=== PATIENT | female | born 1990 | race Caucasian/White ===

== ENCOUNTER 2016-05-25 15:07 | Emergency (ER) | payer OTHER ==
[2016-05-25] MEDS ORDERED: ONDANSETRON HCL/PF 2 MG/ML VIAL IV ONE (18:15)
[2016-05-25] MEDS ORDERED: DICYCLOMINE HCL 10 MG/ML AMPUL IM ONE ×2 (18:16→18:25)
[2016-05-25] MEDS ORDERED: NORMAL SALINE 1,000 ML IV ONE (18:16)
--- NOTE | 2016-05-25 18:20 | ERNOTE ---
<Aura Watt - Last Filed: 05/25/16 23:04> Abdominal HPI - Narrative Date of Service: 05/25/16 - General Chief Complaint: Abdominal Pain Time Seen by Provider: 05/25/16 17:58 Source: patient Exam Limitations: no limitations - Immun/Allergies/Home Medications Immunizatons: IMMUNIZATION HX Immunizations Up to Date Yes History of Influenza Vaccine Yes Allergies/Adverse Reactions: Allergies Penicillins Allergy (Mild, Verified 05/25/16 15:18) Hives Home Medications: HOME MEDICATIONS Acetaminophen [Tylenol] 650 mg PO Q4H PRN 12/26/15 [Last Taken 12/26/15 14:00] Cipro BID 05/25/16 [Last Taken Unknown] Dicyclomine HCl [Bentyl] 10 mg PO TID PRN #30 capsule 05/25/16 [Last Taken Unknown] Promethazine HCl [Phenergan] 25 mg PO QID PRN #30 tab 05/25/16 [Last Taken Unknown] metFORMIN HCL [Glucophage Xr] 750 mg PO BID 05/25/16 [Last Taken Unknown] - History of Present Illness Narrative: Pt. comes in with c/o NVD and abd pain for a week. Pt. was seen in the dafter ED four days ago and dx with partial SOB, ruptured ovarian cyst, and gallbladder disease. Pt. was discharged home without any change in symptoms and states that the NVD and pain have worsened since. Pt. states that he has not been able to eat or drink for six days. Review of Systems - Review of Systems Constitutional: Present: weakness, fatigue, malaise. Absent: recent illness, fever, chills EYE: Present: no symptoms reported ENT: Present: no symptoms reported Respiratory: Present: no symptoms reported. Absent: shortness of breath, cough , wheezing Cardiology: Present: no symptoms reported. Absent: chest pain, palpitations, edema Gastrointestinal/Abdominal: Present: nausea, vomiting, diarrhea, abdominal pain - periumbilical LUQ Genitourinary: Present: no symptoms reported. Absent: frequency, pain, dysuria , decreased urinary output Musculoskeletal: Present: no symptoms reported. Absent: back pain, joint pain Skin: Present: no symptoms reported Neurological: Present: no symptoms reported. Absent: headache, dizziness/light- headedness, numbness, tingling All Other Systems: All systems neg except as marked - Patient's Past Medical History Patient History - Medical: Diabetes Type 2, Migraines Patient History - Cancer: No Hx of Cancer Patient History - Surgical Procedures: Appendectomy - Social History Living Situations: home Alcohol Use: occasionally Physical Exam - Physical Exam General Appearance: Present: wd/wn, alert, no apparent distress Eye Exam: Normal inspection: bilateral, PERRL: bilateral, EOMI: bilateral Ears, Nose, Throat: Present: normal ENT inspection, hearing grossly normal, normal pharynx Neck: Present: normal inspection, nontender. Absent: lymphadenopathy (R), lymphadenopathy (L) Respiratory: Present: no respiratory distress, normal breath sounds, no accessory muscle use, chest nontender, lungs clear Cardiovascular/Chest: Present: regular rate, rhythm, no murmur, normal peripheral pulses Gastrointestinal/Abdominal: Present: nondistended, soft, no organomegaly, tenderness - LUQ and periumbilical, abnormal bowel sounds - hypo Back Exam: Present: normal inspection, normal range of motion, CVA tenderness (R ), CVA tenderness (L) Extremity Exam: Present: normal inspection, non-tender, no edema, normal range of motion Neurological Exam: Present: alert, oriented, normal mood/affect, no motor/ sensory deficits, 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 Absent: skin rash ED Progress - Date and Time Seen: Date and Time: 05/25/16 22:03 Reviewed labs from [place] and pt. with significant fat intolerance in food. Will rehydrate pt. and have her follow up with her PCP for further referral to GI doctor and will have her start low fat and gluten free diet in the mean time for hopeful symptom alleviation. 05/25/16 23:04 Pt. unable to tolerate any foods or fluids. - Results and Orders Patient's Lab Results:: I have reviewed the patient's lab results. - Vital Signs Patient's Vital Signs:: I have reviewed the patient's vital signs. Vital Signs: Vital Signs 05/25/16 05/25/16 15:12 17:47 Temperature 36.4 C L Pulse Rate 103 H 99 Respiratory 16 14 Rate Blood Pressure 115/81 O2 Sat by Pulse 99 100 Oximetry - X-Ray X-Ray #1 X-Ray: abdomen Interpretation: Reviewed by me X-ray Comments: No free air, no obstruction. - Progress/Reassessment Chief Complaint: Abdominal Pain Progress:: Unchanged - Transfer of Care Physician Sign Out: Aura Watt Brief History: Awaiting for pt to tolerate foods. Receiving Physician: Baldev Ortega Expected Disposition: Discharge Departure - Departure Clinical Impression: Constipation by delayed colonic transit Disposition: Home self-care Condition: Good Instructions: Constipation, Adult, [id number] Additional Instructions: Take another dose of milk of Magnesia in 6-8 hours if no results. Buy Magnesium Citrate and drink half of a bottle followed by a glass of water if no results by tomorrow night. Follow up with your regular doctor if not improving Referrals: Yusuf France DO [Primary Care Provider] - Prescriptions: Dicyclomine HCl [Bentyl] 10 mg PO TID PRN #30 capsule PRN Reason: Pain Promethazine HCl [Phenergan] 25 mg PO QID PRN #30 tab PRN Reason: nausea/vomiting <Baldev Ortega - Last Filed: 05/26/16 02:46> Abdominal HPI - Immun/Allergies/Home Medications Immunizatons: IMMUNIZATION HX Immunizations Up to Date Yes History of Influenza Vaccine Yes ED Progress - Results and Orders Patient's Lab Results:: I have reviewed the patient's lab results. Results and Orders: Laboratory Tests 05/25/16 05/25/16 05/25/16 18:15 18:58 18:58 WBC 6.9 Hgb 14.1 Hct 42.2 Plt Count 256 Sodium 139 Potassium 4.0 Chloride 102 BUN 11 Creatinine 0.78 Calcium 9.8 Total Protein 8.4 H Amylase 22 L Lipase 64 L Urine Color Urine Appearance Urine pH Ur Specific [place] Urine Protein Urine Glucose (UA) Urine Ketones Urine Blood Urine Nitrate Urine Bilirubin Ur Leukocyte Esterase Urine Culture Comments Urine HCG, Qual Negative 05/25/16 19:41 WBC Hgb Hct Plt Count Sodium Potassium Chloride BUN Creatinine Calcium Total Protein Amylase Lipase Urine Color Yellow Urine Appearance Slightly cloudy Urine pH 6.0 Ur Specific [place] >=1.030 Urine Protein Negative Urine Glucose (UA) Negative Urine Ketones 5 Urine Blood 50 H Urine Nitrate Negative Urine Bilirubin Negative Ur Leukocyte Esterase Negative Urine Culture Comments No culture indicated Urine HCG, Qual - Vital Signs Patient's Vital Signs:: I have reviewed the patient's vital signs. Vital Signs: Vital Signs 05/25/16 05/25/16 05/25/16 17:47 20:51 23:11 Pulse Rate 99 79 86 Respiratory 14 14 18 Rate Blood Pressure 122/64 135/71 O2 Sat by Pulse 100 97 100 Oximetry 05/25/16 23:57 Pulse Rate 88 Respiratory 18 Rate Blood Pressure 135/72 O2 Sat by Pulse 100 Oximetry - Progress/Reassessment Progress Note-Subjective: 05/26/16 00:14 Pt states that nausea is better but pain remains. PE: A&O INAD lying on the ER cot. ABD: sightly firm in the RUQ and epigastrium. No guarding or rebound tenderness. BS hypoactive throughout. XR abd; retained stool and contrast (from 05/20/16 CT) in the acending and transverse colon. 05/26/16 02:34 Discussed lab results with the patient and her mother. Discussed constipation and the findings at [facility] of a diffuse illeus that suggest the same diagnosis. Showed the patient and her mother the x rays with 4 days old contrast and stool concentrated in the area of her discomfort. Discussed MOM and magnesium citrate. Discussed the constipating effects of narcotic medications. Discussed the use of dicyclomine and that it can also be constipating and should only be used if she is having severe crampy pain. All questions answered to the best of my ability
[2016-05-25] MEDS ORDERED: ONDANSETRON HCL/PF 2 MG/ML VIAL ONE (18:25)
[2016-05-25 19:06] LABS: Hematocrit 42.2 % (37.0-47.0); Hemoglobin 14.1 gm/dL (12.5-16.0); Mean Cell Volume 88.8 fl (78-100); Mean Corpuscular Hemoglobin 29.7 pg (27-31); Mean Corpuscular Hgb Conc 33.4 g/dl (32-36); Mean Platelet Volume 8.9 fl (6.0-9.5); Neutrophil # 3.6 K/mm3 (1.3-6.0); Neutrophil % 51.6 % (42-75.0); Platelet Count 256 K/mm3 (150-450); Red Blood Count 4.75 M/mm3 (4.2-5.4); Red Cell Distribution Width 12.4 % (11.5-14.0); White Blood Count 6.9 K/mm3 (4.0-10.5)
[2016-05-25 19:22] LABS: Albumin * 4.3 gm/dl (3.4-5.0); Anion Gap 15.4 mmol/L (6.8-13.8); BUN/Creatinine Ratio 14.1 (9.0-21.6); Bilirubin, Total 0.5 mg/dL (0.0-1.1); Ca. Corrected For Albumin 9.2 mg/dL (8.4-10.2); Calcium * 9.8 mg/dL (7.9-10.9); Carbon Dioxide 25.6 mmol/L (24-32.6); Total Protein 8.4 gm/dL (6.2-8.2)
[2016-05-25 19:56] LABS: Urine Bilirubin Negative (NEGATIVE); Urine Blood 50 /ul (NEGATIVE); Urine Ketone 5 mg/dL (NEGATIVE); Urine Nitrite Negative (NEGATIVE); Urine Protein Negative (NEGATIVE); Urine Specific Gravity >=1.030 SP.GR. (1.005-1.010); Urine Urobilinogen Normal (NORMAL)
[2016-05-25 20:05] LABS: Urine Appearance Slightly Cloudy; Urine Color Yellow; Urine RBC 0-5 /hpf (0-5); Urine WBC None Seen /hpf (0-5)
[2016-05-25 20:06] LABS: Urine Bacteria 1+
[2016-05-25] MEDS ORDERED: PROMETHAZINE HCL 25 MG in DEXTROSE 5 % IN WATER 50 ML IV ONE ×2 (22:57)
[2016-05-25] MEDS ORDERED: KETOROLAC TROMETHAMINE 30 MG/ML VIAL IV ONE (23:59)
[2016-05-26] MEDS ORDERED: KETOROLAC TROMETHAMINE 30 MG/ML VIAL ONE (00:02)
[2016-05-26] MEDS ORDERED: MAGNESIUM HYDROXIDE 30 ML UDC PO ONE (02:35)
[2016-05-26] MEDS ORDERED: MAGNESIUM HYDROXIDE 30 ML UDC ONE (02:36)
[2016-05-26 02:39] VITALS: BP 168/95
== END 2016-05-26 02:54 | disposition home or self-care (01) ==
LOC: ER 15:07
DX: K59.01 Slow transit constipation (principal); E11.9 Type 2 diabetes mellitus without complications

== ENCOUNTER 2018-12-07 15:19 | Inpatient (IN) ==
[2018-12-07] MEDS ORDERED: BETAMETHASONE ACETATE,SOD PHOS 6 MG/ML VIAL IM ONE (15:36)
[2018-12-07] MEDS ORDERED: DEXTROSE 5%-LACTATED RINGERS 1,000 ML IV PRN (15:36)
[2018-12-07] MEDS ORDERED: diphenhydrAMINE HCL 50 MG/ML VIAL IV ONE (15:36)
[2018-12-07] MEDS ORDERED: ONDANSETRON HCL/PF 2 MG/ML VIAL IV PRN ×2 (15:36→23:43)
[2018-12-07 15:51] LABS: Hematocrit 33.8 % (37.0-47.0); Hemoglobin 11.2 gm/dL (12.5-16.0); Mean Cell Volume 86.9 fl (78-100); Mean Corpuscular Hemoglobin 28.8 pg (27-31); Mean Corpuscular Hgb Conc 33.1 g/dl (32-36); Mean Platelet Volume 8.6 fl (8-12.5); Neutrophil % 67.4 % (42-75.0); Platelet Count 187 K/mm3 (150-450); Red Blood Count 3.89 M/mm3 (4.2-5.4); Red Cell Distribution Width 13.7 % (11.5-14.0); White Blood Count 10.3 K/mm3 (4.0-10.5)
[2018-12-07] MEDS: METOCLOPRAMIDE HCL 5 MG/ML VIAL IV PRN ×4 (15:59→16:47)
[2018-12-07 16:02] LABS: Albumin * 2.4 gm/dl (3.4-5.0); Anion Gap 15.3 mmol/L (6.8-13.8); BUN/Creatinine Ratio 11.3 (9.0-21.6); Bilirubin, Total 0.4 mg/dL (0.0-1.1); Ca. Corrected For Albumin 9.8 mg/dL (8.4-10.2); Calcium * 8.8 mg/dL (7.9-10.9); Carbon Dioxide 21.3 mmol/L (24-32.6); Potassium 3.6 mmol/L (3.4-4.6); Total Protein 6.6 gm/dL (6.2-8.2)
[2018-12-07 16:09] LABS: Random Urine Total Protein 54.5 mg/dL (0-12)
[2018-12-07 16:30] LABS: Cocaine Ur Negative (NEGATIVE); Urine Barbiturate Negative (NEGATIVE); Urine Benzodiazepines Negative (NEGATIVE); Urine Opiates Negative (NEGATIVE); Urine PCP Negative (NEGATIVE); Urine THC Negative (NEGATIVE)
[2018-12-07] MEDS ORDERED: MAGNESIUM SULFATE IN WATER 1,000 ML IV SCH (17:30)
[2018-12-07] MEDS: MAGNESIUM SULFATE IN WATER 50 ML, MAGNESIUM SULFATE IN WATER 50 ML IV ONE ×4 (18:00→18:25)
[2018-12-07] MEDS ORDERED: OXYTOCIN/DEXTROSE 5%-WATER 30 UNITS/500 ML BAG IV ONE (18:12)
[2018-12-07] MEDS ORDERED: MISOPROSTOL 100 MCG TABLET VG ONE (18:12)
[2018-12-07] MEDS ORDERED: oxyCODONE HCL/ACETAMINOPHEN 1 TAB TABLET PO ONE (20:00)
[2018-12-07] MEDS ORDERED: SUMAtriptan SUCCINATE 50 MG TABLET PO ONE (21:03)
[2018-12-07] MEDS ORDERED: NALOXONE HCL 1 MG/1 ML SYRG IV PRN (23:43)
[2018-12-07] MEDS ORDERED: BUPIVACAINE HCL/0.9 % NACL/PF 250 ML EP PRN (23:43)
[2018-12-07] MEDS ORDERED: BUPIVACAINE HCL/PF 30 ML VIAL EP SCH (23:45)
[2018-12-07] MEDS ORDERED: RINGER'S SOLUTION,LACTATED 1,000 ML IV ONE (23:48)
--- NOTE | 2018-12-08 00:25 | ANES ---
Anesthesia Pre Procedure Eval Vitals/Labs: Last Vital Signs Temp 36.5 C 12/07/18 15:50 Pulse 98 12/07/18 15:50 Resp 18 12/07/18 15:50 BP 141/79 H 12/07/18 15:50 Pulse Ox 98 12/07/18 15:50 HOME MEDICATIONS breast pump See Dose Instructions .ROUTE .MEDSUPPLY #1 ea 11/21/18 [Last Taken Unknown] Vits96/Iron Fum/Folic [ S] 1 tab PO DAILY 12/07/18 [Last Taken Unknown] Allergies/Adverse Reactions: Allergies Allergy/AdvReac Type Severity Reaction Status Date / Time Penicillins Allergy Mild Hives Verified 12/07/18 15:17 - Planned Procedure Planned Procedure: ELEVATED BLOOD PRESSURE W/MASSIVE HEADACHE Medication List Reviewed:: Yes Allergies Verified: Yes Medical History (Updated 07/18/18 @ 14:50 by MEKA Nair) Injury of foot, left (Acute) Onset Date: ~07/17/18 Ankle pain, left (Acute) Onset Date: ~07/17/18 Foot pain, left (Acute) Onset Date: ~07/17/18 Hypothyroid (Chronic) History of insulin resistance (Chronic) Frequent headaches (Acute) PCOS (polycystic ovarian syndrome) (Chronic) BMI 39.0-39.9,adult Onset Date: 01/19/17 Body piercing Dysmenorrhea Onset Date: 06/03/15 Frequent headaches Insulin resistance Onset Date: 01/09/16 Irregular menses Menorrhagia with regular cycle Onset Date: 06/03/15 Oligomenorrhea Onset Date: 01/09/16 PCOS (polycystic ovarian syndrome) Onset Date: 01/09/16 Tattoos Bacterial vaginitis (Resolved) Body mass index (BMI) 40.0-44.9, adult (Resolved) Infertility associated with anovulation (Resolved) responded in past to clomid Ruptured ovarian cyst Onset Date: ~05/2016 Secondary oligomenorrhea (Resolved) [place] teeth extracted Surgical History (Updated 12/01/17 @ 15:51 by Keily Rincon RN) History of appendectomy Onset Date: ~1998 History of cholecystectomy Onset Date: ~2016 @ [facility] Family History (Updated 12/01/17 @ 15:52 by Keily Rincon RN) Father Alive and well Mother Alive and well - Anesthesia Assessment and Plan ASA Class: PS, II Anesthesia Type Plan: Epidural
--- NOTE | 2018-12-08 01:00 | ANES ---
Anesthesia Procedure Note Procedure Note: ANESTHESIA PROCEDURE NOTE Date of Procedure: 12/08/2018. Time of procedure: 24. Performed by: Ehsan Stuart CRNA Jig Grinder: None. Preprocedure diagnosis: Active labor. Post procedure diagnosis: Same. Procedure: Insertion of labor epidural. Indications: The patient is a 28-year-old female in active labor requesting labor epidural for pain management. Findings: See below. Details of the procedure: The patient was placed in a sitting position. DuraPrep as well as Betadine swabs X3 was applied to the patient's back. Patient was then draped in a sterile fashion. Lidocaine 1% was infiltrated to the skin and subcutaneous tissues at the level of the L3-4 interspace. The epidural space was identified using a 18-gauge Tuohy needle with [id number] technique. Epidural catheter was inserted to a depth of 13 centimeters at skin. Negative test dose was elicited using 3 mL of 1.5% preservative-free lidocaine plus epinephrine 1 200,000. The epidural catheter was then taped and secured in place. A loading dose of 8 mL of 0.25% preservative-free bupivacaine was administered to the epidural catheter after negative aspiration for blood and CSF. EBL: Minimal. Fluids: N/A. Specimen: N/A. Post procedure condition: The patient tolerated the procedure well. No complications were noted. Thank you for this consultation. Ehsan Stuart CRNA
--- NOTE | 2018-12-08 01:01 | ANES ---
Post Anesthesia Assessment - Vital Signs Vitals: Last Vital Signs Temp 36.3 C 12/08/18 00:55 Pulse 113 H 12/08/18 00:55 Resp 22 H 12/08/18 00:55 BP 134/63 12/08/18 00:55 Pulse Ox 98 12/08/18 00:55 Airway Patency: Normal - Mental Status Level Of Consciousness: Awake - N/V Assessment Nausea/Vomiting Presence: None Dehydration:: No
[2018-12-08] MEDS ORDERED: SUMAtriptan SUCCINATE 50 MG TABLET PO ONE (01:09)
--- NOTE | 2018-12-08 01:17 | HP ---
Chief Complaint - Chief Complaint Date of Service: 12/08/18 Time of Service: 00:38 Chief Complaint: Intractable headache History of Present Illness: 28 yo at 37 weeks presents to L&D with complaint of intractable headache for 3 days and elevated blood pressures. She also complains of nausea and swelling. Patient has a history of headaches but they usually resolve with tylenol. This one is the most painful and longest lasting one she has ever had. She failed to get any relief with the Benadryl/Reglan IV SHAY protocol or percocet. Patient received one dose of betamethasone in office yesterday afternoon. This complicated by anemia, hypothyroid, obesity, and insulin resistance. Rh positive Rubella nonimmune GBS negative Medical History (Updated 07/18/18 @ 14:50 by MEKA Nair) Injury of foot, left (Acute) Onset Date: ~07/17/18 Ankle pain, left (Acute) Onset Date: ~07/17/18 Foot pain, left (Acute) Onset Date: ~07/17/18 Hypothyroid (Chronic) History of insulin resistance (Chronic) Frequent headaches (Acute) PCOS (polycystic ovarian syndrome) (Chronic) BMI 39.0-39.9,adult Onset Date: 01/19/17 Body piercing Dysmenorrhea Onset Date: 06/03/15 Frequent headaches Insulin resistance Onset Date: 01/09/16 Irregular menses Menorrhagia with regular cycle Onset Date: 06/03/15 Oligomenorrhea Onset Date: 01/09/16 PCOS (polycystic ovarian syndrome) Onset Date: 01/09/16 Tattoos Bacterial vaginitis (Resolved) Body mass index (BMI) 40.0-44.9, adult (Resolved) Infertility associated with anovulation (Resolved) responded in past to clomid Ruptured ovarian cyst Onset Date: ~05/2016 Secondary oligomenorrhea (Resolved) [place] teeth extracted Surgical History: Surgical History (Updated 12/01/17 @ 15:51 by Keily Rincon RN) History of appendectomy Onset Date: ~1998 History of cholecystectomy Onset Date: ~2017 @ [facility] Family History: Family History (Updated 12/01/17 @ 15:52 by Keily Rincon RN) Father Alive and well Mother Alive and well Social History: (Last Reviewed 12/08/18 @ 00:45 by Yusuf France DO) Social History: adopted: No chcf: No Marital status: household members: spouse, children number of children: 1 current occupational status: employed current occupation: Daycare Worker Highest education level completed: high school graduate Service: No Tobacco: Smoking Status: Never smoker Alcohol: alcohol intake: former alcohol intake frequency: holiday/special occasion details: none since Substance Use: substance use type: does not use Dietary Habits: caffeine: Yes caffeine comment: 3/day Type: tea daily servings of milk/calcium: 0-1 Exercise: Physical activity type: none Marge/Advent: special marge needs: No Personal Safety: do you feel safe at home: Yes Review Of Systems (GEN) - Review of Systems Generalized/Overall Review: Present: No Symptoms Reported EENTM: Present: No Symptoms Reported Respiratory: Present: No Symptoms Reported Cardiac: Present: Edema Abdominal: Present: Nausea Genitourinary: Present: No Symptoms Reported Musculoskeletal: Present: No Symptoms Reported Neurological: Present: Headache Skin: Present: No Symptoms Reported Endocrine: Present: No Symptoms Reported Immunizations: IMMUNIZATION HX Immunizations Up to Date Yes History of Influenza Vaccine Yes Allergies/Adverse Reactions: Allergies Allergy/AdvReac Type Severity Reaction Status Date / Time Penicillins Allergy Mild Hives Verified 12/07/18 15:17 Home Medications: HOME MEDICATIONS breast pump See Dose Instructions .ROUTE .MEDSUPPLY #1 ea 11/21/18 [Last Taken Unknown] Vits96/Iron Fum/Folic [ S] 1 tab PO DAILY 12/07/18 [Last Taken Unknown] Exam - Exam Vital Signs: Vital Signs - Last Taken Temp 36.5 C 12/07/18 15:50 Pulse 98 12/07/18 15:50 Resp 18 12/07/18 15:50 BP 141/79 H 12/07/18 15:50 Pulse Ox 98 12/07/18 15:50 Constitutional: Present: Alert, Oriented x3, Cooperative, Mild distress - from SHAY pain and nausea ENT Exam: Present: hearing grossly normal Neck: Present: non-tender, supple. Absent: thyromegaly Breasts: Present: Exam deferred Respiratory: Present: lungs clear, no respiratory distress Cardiovascular/Chest: Present: normal peripheral pulses, tachycardia, edema Abdomen: Present: soft, nontender, no rebound tenderness, other - gravid /Rectal: Present: Other - cervix 1/50/-2 Extremity: Present: no calf tenderness, lower extremity edema Skin Exam: Present: normal color, warm/dry, no cyanosis Neurologic: Present: no motor/sensory deficits, normal mood/affect, oriented x 3, other - DTR 3/4, no clonus Appearance: Present: appropriate appearance, appropriate insight Eye contact: Present: cooperative, good eye contact Thoughts: Present: normal thought pattern Diagnostic Studies: Abnormal Lab Results 12/07/18 12/07/18 12/07/18 Range/Units 15:45 15:45 15:45 RBC 3.89 L (4.2-5.4) M/mm3 Hgb 11.2 L (12.5-16.0) gm/dL Hct 33.8 L (37.0-47.0) % Immature Gran % (Auto) 1.00 H (0.001-0.429) % Immature Gran # (Auto) 0.10 H (0.000-0.0310) K/mm3 Lymphocytes % 17.7 L (20-51) % Monocytes % 9.8 H (0.0-9) % Eosinophils % 3.9 H (0.0-3.0) % Neutrophils # 7.0 H (1.3-6.0) K/mm3 Carbon Dioxide 21.3 L (24-32.6) mmol/L Anion Gap 15.3 H (6.8-13.8) mmol/L Est GFR (Non-Af Amer) 144 H D (60-130) mL/min ALT 15 L (19-67) U/L Albumin 2.4 L (3.4-5.0) gm/dl U Random Total Protein 54.5 H (0-12) mg/dL U [place] Prot/Creat Ratio 308 H (0-199) mg/gm Laboratory Results WBC 10.3 K/mm3 (4.0-10.5) 12/07/18 15:45 RBC 3.89 M/mm3 (4.2-5.4) L 12/07/18 15:45 Hgb 11.2 gm/dL (12.5-16.0) L 12/07/18 15:45 Hct 33.8 % (37.0-47.0) L 12/07/18 15:45 MCV 86.9 fl (78-100) 12/07/18 15:45 MCH 28.8 pg (27-31) 12/07/18 15:45 MCHC 33.1 g/dl (32-36) 12/07/18 15:45 RDW 13.7 % (11.5-14.0) 12/07/18 15:45 Plt Count 187 K/mm3 (150-450) 12/07/18 15:45 MPV 8.6 fl (8-12.5) 12/07/18 15:45 Immature Gran % (Auto) 1.00 % (0.001-0.429) H 12/07/18 15:45 Immature Gran # (Auto) 0.10 K/mm3 (0.000-0.0310) H 12/07/18 15:45 67.4 % (42-75.0) 12/07/18 15:45 17.7 % (20-51) L 12/07/18 15:45 9.8 % (0.0-9) H 12/07/18 15:45 3.9 % (0.0-3.0) H 12/07/18 15:45 0.2 % (0.0-1.0) 12/07/18 15:45 Nucleated RBC % 0.0 k/mm3 (0-1) 12/07/18 15:45 7.0 K/mm3 (1.3-6.0) H 12/07/18 15:45 1.82 k/mm3 (1.5-3.5) 12/07/18 15:45 1.0 k/mm3 (0.0-1.0) 12/07/18 15:45 0.4 k/mm3 (0.0-0.7) 12/07/18 15:45 Absolute Basophils 0.0 k/mm3 (0.0-0.1) 12/07/18 15:45 Sodium 137 mmol/L (132-142) 12/07/18 15:45 137 mmol/L (130-142) 12/07/18 15:45 Potassium 3.6 mmol/L (3.4-4.6) 12/07/18 15:45 Chloride 104 mmol/L (97-106) 12/07/18 15:45 Carbon Dioxide 21.3 mmol/L (24-32.6) L 12/07/18 15:45 15.3 mmol/L (6.8-13.8) H 12/07/18 15:45 BUN 6 mg/dL (3-23) D 12/07/18 15:45 0.53 mg/dL (0.4-1.4) 12/07/18 15:45 Est GFR (Non-Af Amer) 144 mL/min (60-130) H D 12/07/18 15:45 11.3 (9.0-21.6) 12/07/18 15:45 110 mg/dL (70-110) 12/07/18 15:45 Calcium 8.8 mg/dL (7.9-10.9) 12/07/18 15:45 Calcium Adj for Albumin 9.8 mg/dL (8.4-10.2) 12/07/18 15:45 0.4 mg/dL (0.0-1.1) 12/07/18 15:45 AST 17 U/L (0-48) 12/07/18 15:45 ALT 15 U/L (19-67) L 12/07/18 15:45 131 U/L (50-170) 12/07/18 15:45 6.6 gm/dL (6.2-8.2) 12/07/18 15:45 2.4 gm/dl (3.4-5.0) L 12/07/18 15:45 Ur Random Creatinine 176.9 mg/dL (60-200) 12/07/18 15:45 U Random Total Protein 54.5 mg/dL (0-12) H 12/07/18 15:45 U [place] Prot/Creat Ratio 308 mg/gm (0-199) H 12/07/18 15:45 Negative (NEGATIVE) 12/07/18 15:15 Negative (NEGATIVE) 12/07/18 15:15 Ur Phencyclidine Scrn Negative (NEGATIVE) 12/07/18 15:15 Urine Amphetamine Negative (NEGATIVE) 12/07/18 15:15 U Benzodiazepines Scrn Negative (NEGATIVE) 12/07/18 15:15 Negative (NEGATIVE) 12/07/18 15:15 Negative (NEGATIVE) 12/07/18 15:15 NST reactive Assessment/Plan - Assessment/Plan (1) Severe preeclampsia Assessment: Due to elevated blood pressures, intractable headache unlike prior headaches, and elevated Pr/Cr ratio will place on magnesium sulfate IV and induce labor. Epidural PRN. Problem: Acute Qualifiers: Trimester: third trimester Qualified Code(s): O14.13 - Severe pre- eclampsia, third trimester (2) Hypothyroid Problem: Chronic Qualifiers: Hypothyroidism type: unspecified Qualified Code(s): E03.9 - Hypothyroidism, unspecified (3) History of insulin resistance Problem: Chronic
--- NOTE | 2018-12-08 01:21 | PN ---
Subjective - Date and Time Seen Date: 12/08/18 Time: 01:17 Objective - Vitals Vitals: Last Vital Signs Temp 36.3 C 12/08/18 00:55 Pulse 113 H 12/08/18 00:55 Resp 22 H 12/08/18 00:55 BP 134/63 12/08/18 00:55 Pulse Ox 98 12/08/18 00:55 Patient still with headache she is rating 7 out of 10. Relief of contraction pain now with epidural. Vital signs stable. Status post Cytotec x1 dose at 1842 on 12/07/2018. FHT: 140 baseline, reassuring contractions q 1-3 min Cervix: 4-5/70/-2, [id number] color. Impression: Intrauterine at 37 weeks induction of labor for preeclampsia with severe features. Persistent headache with minimal relief. Plan: Continue IV magnesium sulfate. Repeat dose of Imitrex. If headaches still persist after delivery will obtain MRI. - Abnormal Lab Findings Abnormal Lab Findings: Abnormal Lab Results 12/07/18 12/07/18 12/07/18 Range/Units 15:45 15:45 15:45 RBC 3.89 L (4.2-5.4) M/mm3 Hgb 11.2 L (12.5-16.0) gm/dL Hct 33.8 L (37.0-47.0) % Immature Gran % (Auto) 1.00 H (0.001-0.429) % Immature Gran # (Auto) 0.10 H (0.000-0.0310) K/mm3 Lymphocytes % 17.7 L (20-51) % Monocytes % 9.8 H (0.0-9) % Eosinophils % 3.9 H (0.0-3.0) % Neutrophils # 7.0 H (1.3-6.0) K/mm3 Carbon Dioxide 21.3 L (24-32.6) mmol/L Anion Gap 15.3 H (6.8-13.8) mmol/L Est GFR (Non-Af Amer) 144 H D (60-130) mL/min ALT 15 L (19-67) U/L Albumin 2.4 L (3.4-5.0) gm/dl U Random Total Protein 54.5 H (0-12) mg/dL U [place] Prot/Creat Ratio 308 H (0-199) mg/gm [place] Physician Documentation - Urinary Catheter Management Urethral ([place]) Date of Insertion: 12/07/18 Time of Insertion: 19:15 Assessment/Plan - Problems/Diagnosis (1) Severe preeclampsia Problem: Acute Qualifiers: Trimester: third trimester Qualified Code(s): O14.13 - Severe pre- eclampsia, third trimester (2) Hypothyroid Problem: Chronic Qualifiers: Hypothyroidism type: unspecified Qualified Code(s): E03.9 - Hypothyroidism, unspecified (3) History of insulin resistance Problem: Chronic
--- NOTE | 2018-12-08 06:19 | PN ---
Progess Note - Interim Date: 12/08/18 Time: 06:05 Narrative: 12/08/18 06:05 Epidural working well for contractions. Still with headache 7 out of 10. Vital signs stable. Mildly tachycardic with pulse 111 Pitocin at 6 mu/min. Magnesium sulfate at 2 g/h DTRs 0/4, urine output 100 mL/h, FHT: 140 baseline, reassuring contractions q 2-3 min Cervix: 8/90/-2 Impression: Intrauterine at 37 weeks induction of labor for preeclampsia with severe features. Persistent intractable headache-no neurologic deficits Plan: Mag turned off for half hour to allow reflexes to return. Anticipate spontaneous vaginal delivery soon. CT scan after delivery.
[2018-12-08] MEDS ORDERED: MISOPROSTOL 200 MCG TABLET RC ONE (08:00)
[2018-12-08] MEDS ORDERED: OXYTOCIN/DEXTROSE 5%-WATER 30 UNITS/500 ML BAG IV ONE (08:29)
[2018-12-08] MEDS ORDERED: BENZOCAINE/MENTHOL 81 SPRAY CAN TP PRN (08:29)
[2018-12-08] MEDS ORDERED: SENNOSIDES 8.6 MG TABLET PO PRN (08:29)
[2018-12-08] MEDS ORDERED: GLYCERIN/WITCH HAZEL LEAF 40 APPL BOX TP PRN (08:29)
[2018-12-08] MEDS ORDERED: IBUPROFEN 800 MG TABLET PO PRN (08:29)
[2018-12-08] MEDS ORDERED: HYDROCORTISONE 30 APPL TUBE TP PRN (08:29)
[2018-12-08] MEDS ORDERED: BISACODYL 10 MG SUPP.RECT RC PRN (08:29)
[2018-12-08] MEDS ORDERED: ONDANSETRON HCL/PF 2 MG/ML VIAL IV PRN (08:29)
[2018-12-08] MEDS ORDERED: DEXTROSE 5%-LACTATED RINGERS 1,000 ML IV PRN ×2 (08:29→17:38)
[2018-12-08] MEDS ORDERED: HYDROcodone/ACETAMINOPHEN 1 EACH TABLET PO PRN (08:29)
--- NOTE | 2018-12-08 08:33 | OR ---
Operative Report - Dictated Report Narrative: Spontaneous vaginal delivery of viable female at 0751 on 12/08/2018 with Apgars 8 9, weighing 3627 g. Cord clamping delayed approximately 1 minute Placenta delivered complete, intact, with three vessel cord Estimated blood loss: 400 mL due to uterine atony which responded to uterine massage, Cytotec 800 mcg rectally, and 30 milliunits of Pitocin intravenously Anesthesia: Epidural Lacerations: Bilateral periurethral abrasion and a 5 mm first-degree vaginal t ear at the posterior fourchette with no repair necessary. History for MU History for Definition: * The number of deliveries resulting in a live the patient experienced prior to current hospitalization * The previous delivery of live twins or any live multiple gestation is considered one live event. *If primagravida or nulliparous is documented select zero for the number of previous live births. Live Events: Live Events: 1
[2018-12-08] MEDS: RINGER'S SOLUTION,LACTATED 1,000 ML IV PRN ×2 (08:48)
--- NOTE | 2018-12-08 08:53 | PN ---
Progess Note - Interim Date: 12/08/18 Time: 08:51 Narrative: 12/08/18 08:51 SHAY resolved within minutes after delivery. Good urine output. BPs WNL. Still mild tachycardia with no f/c, chest pain, or SOB. Will continue magnesium sulfate for at least 12-24h and monitor patient closely.
[2018-12-08] MEDS: IBUPROFEN 800 MG TABLET PO PRN ×2 (09:33→19:18)
[2018-12-08] MEDS: DOCUSATE SODIUM 100 MG CAPSULE PO SCH ×2 (15:12→20:14)
[2018-12-08] MEDS: MAGNESIUM SULFATE IN WATER 1,000 ML IV SCH (15:12)
[2018-12-08] MEDS: PRENATAL VITS96/IRON FUM/FOLIC 1 TAB TABLET PO SCH (15:12)
[2018-12-09] MEDS: MAGNESIUM SULFATE IN WATER 1,000 ML IV SCH (04:35)
[2018-12-09] MEDS ORDERED: diphenhydrAMINE HCL 50 MG/ML VIAL IV ONE (07:43)
[2018-12-09] MEDS ORDERED: METOCLOPRAMIDE HCL 5 MG/ML VIAL IV ONE ×2 (07:43→08:20)
[2018-12-09] MEDS ORDERED: METOCLOPRAMIDE HCL 5 MG/ML VIAL IV PRN (08:22)
--- NOTE | 2018-12-09 09:15 | PN ---
Subjective - Date and Time Seen Date: 12/09/18 Time: 08:48 Objective - Vitals Vitals: Last Vital Signs Temp 37.0 C 12/09/18 07:00 Pulse 103 H 12/09/18 07:00 Resp 18 12/09/18 07:00 BP 134/61 12/09/18 07:00 Pulse Ox 98 12/09/18 07:00 Patient complained of a headache 8 out of 10 this morning - resolved with Benadryl Reglan protocol (2 doses of Reglan) Lochia wnl abdomen - soft, nontender Uterus -firm, at umbilicus - 1 no calf tenderness DTR-3/4, no clonus Impression: day #1 - s/p spontaneous vaginal delivery. Migraine - resolved with Benadryl/Reglan protocol. Preeclampsia with severe features (intractable headache) - resolved Plan: Continue routine care. Advance diet and activity. Continue monitoring closely for preeclampsia Cauti Physician Documentation - Urinary Catheter Management Urethral (Taveras) Date of Insertion: 12/08/18 Time of Insertion: 08:15 Assessment/Plan - Problems/Diagnosis (1) Severe preeclampsia Problem: Acute Qualifiers: Trimester: third trimester Qualified Code(s): O14.13 - Severe pre- eclampsia, third trimester (2) Hypothyroid Problem: Chronic Qualifiers: Hypothyroidism type: unspecified Qualified Code(s): E03.9 - Hypothyroidism, unspecified (3) History of insulin resistance Problem: Chronic
[2018-12-09] MEDS: PRENATAL VITS96/IRON FUM/FOLIC 1 TAB TABLET PO SCH (10:45)
[2018-12-09] MEDS: MAGNESIUM OXIDE 400 MG TABLET PO SCH (10:45)
[2018-12-09] MEDS: DOCUSATE SODIUM 100 MG CAPSULE PO SCH ×2 (10:45→19:04)
[2018-12-09] MEDS: IBUPROFEN 800 MG TABLET PO PRN (19:04)
[2018-12-10] MEDS: DOCUSATE SODIUM 100 MG CAPSULE PO SCH ×2 (05:42→10:22)
[2018-12-10 07:24] LABS: Hematocrit 29.8 % (37.0-47.0); Hemoglobin 9.7 gm/dL (12.5-16.0); Mean Cell Volume 89.2 fl (78-100); Mean Corpuscular Hgb Conc 32.6 g/dl (32-36); Mean Platelet Volume 8.3 fl (8-12.5); Neutrophil # 8.8 K/mm3 (1.3-6.0); Neutrophil % 66.1 % (42-75.0); Platelet Count 221 K/mm3 (150-450); Red Blood Count 3.34 M/mm3 (4.2-5.4); Red Cell Distribution Width 14.1 % (11.5-14.0); White Blood Count 13.3 K/mm3 (4.0-10.5)
[2018-12-10 07:41] LABS: Albumin * 2.3 gm/dl (3.4-5.0); Anion Gap 11.9 mmol/L (6.8-13.8); BUN/Creatinine Ratio 14.5 (9.0-21.6); Bilirubin, Total 0.3 mg/dL (0.0-1.1); Ca. Corrected For Albumin 9.4 mg/dL (8.4-10.2); Calcium * 8.4 mg/dL (7.9-10.9); Carbon Dioxide 25.8 mmol/L (24-32.6); Potassium 3.7 mmol/L (3.4-4.6); TSH * 7.167 uIU/mL (0.358-3.74)
[2018-12-10] MEDS ORDERED: ONDANSETRON 4 MG TAB.RAPDIS PO PRN (08:24)
[2018-12-10] MEDS: MAGNESIUM SULFATE IN WATER 1,000 ML IV SCH (10:13)
[2018-12-10] MEDS: PRENATAL VITS96/IRON FUM/FOLIC 1 TAB TABLET PO SCH (10:22)
[2018-12-10] MEDS: MAGNESIUM OXIDE 400 MG TABLET PO SCH (10:22)
--- NOTE | 2018-12-10 11:31 | PN ---
Subjective - Date and Time Seen Date: 12/10/18 Time: 11:03 Objective - Review of Systems Generalized/Overall Review: Reports: Malaise EENTM: Reports: No Symptoms Reported Respiratory: Reports: No Symptoms Reported Cardiac: Reports: No Symptoms Reported Abdominal: Reports: Nausea - after eating, Other - poor appetite Genitourinary Symptoms: Reports: No Symptoms Reported Musculoskeletal Complaints: Reports: No Symptoms Reported Neurological: Reports: No Symptoms Reported Skin: Reports: No Symptoms Reported Endocrine: Reports: No Symptoms Reported - Vitals Vitals: Last Vital Signs Temp 35.9 C L 12/10/18 09:10 Pulse 90 12/10/18 09:10 Resp 18 12/10/18 09:10 BP 127/79 12/10/18 09:10 Pulse Ox 100 12/10/18 09:10 - Abnormal Lab Findings Abnormal Lab Findings: Abnormal Lab Results 12/10/18 12/10/18 Range/Units 07:17 07:17 WBC 13.3 H D (4.0-10.5) K/mm3 RBC 3.34 L (4.2-5.4) M/mm3 Hgb 9.7 L (12.5-16.0) gm/dL Hct 29.8 L (37.0-47.0) % RDW 14.1 H (11.5-14.0) % Immature Gran % (Auto) 1.80 H (0.001-0.429) % Immature Gran # (Auto) 0.24 H (0.000-0.0310) K/mm3 Neutrophils # 8.8 H (1.3-6.0) K/mm3 Monocytes # 1.2 H (0.0-1.0) k/mm3 Chloride 108 H (97-106) mmol/L Est GFR (Non-Af Amer) 138 H (60-130) mL/min Total Protein 6.0 L (6.2-8.2) gm/dL Albumin 2.3 L (3.4-5.0) gm/dl TSH 7.167 H (0.358-3.74) uIU/mL - Exam Constitutional: Present: Alert, Oriented x3, Cooperative, No distress ENT Exam: Present: hearing grossly normal Breasts: Present: Exam deferred Respiratory: Present: no respiratory distress Cardiovascular/Chest: Present: regular rate, rhythm Abdomen: Present: soft, nontender, no rebound tenderness, other - uterus at U-2. /Rectal: Present: Exam deferred Extremity: Present: no pedal edema, no calf tenderness, other - DTR 2/4, no clonus Skin Exam: Present: normal color, warm/dry, no cyanosis Lymphatic: Present: no adenopathy Neurologic: Present: alert, normal mood/affect, oriented x 3 Appearance: Present: appropriate appearance, appropriate insight Eye contact: Present: cooperative, good eye contact Thoughts: Present: normal thought pattern Cauti Physician Documentation - Urinary Catheter Management Urethral (Taveras) Urethral Indwelling: No Date of Insertion: 12/08/18 Time of Insertion: 08:15 Date of Removal: 12/09/18 Time of Removal: 09:20 Assessment/Plan Plan Narrative: TSH high. Will get work-up and start on levothyroxine. D/c home with preeclampsia precautions and routine d/c instructions. F/ui 1 week. - Problems/Diagnosis (1) Severe preeclampsia Problem: Resolved Qualifiers: Trimester: third trimester Qualified Code(s): O14.13 - Severe pre- eclampsia, third trimester (2) Hypothyroid Problem: Chronic Qualifiers: Hypothyroidism type: unspecified Qualified Code(s): E03.9 - Hypothyroidism, unspecified (3) History of insulin resistance Problem: Chronic (4) Anemia Problem: Acute Qualifiers: Anemia type: iron deficiency Iron deficiency anemia type: inadequate dietary iron intake Qualified Code(s): D50.8 - Other iron deficiency anemias (5) hemorrhage Problem: Acute Qualifiers: hemorrhage type: third-stage Qualified Code(s): O72.0 - Third- stage hemorrhage Narrative: mild. Responded to uterine massage, Cytotec 800mcg and pitocin 30 mu/min.
--- NOTE | 2018-12-10 12:33 | PN ---
Subjective - Date and Time Seen Date: 12/10/18 Time: 12:26 Objective - Vitals Vitals: Last Vital Signs Temp 35.9 C L 12/10/18 09:10 Pulse 90 12/10/18 09:10 Resp 18 12/10/18 09:10 BP 127/79 12/10/18 09:10 Pulse Ox 100 12/10/18 09:10 - Abnormal Lab Findings Abnormal Lab Findings: Abnormal Lab Results 12/10/18 12/10/18 Range/Units 07:17 07:17 WBC 13.3 H D (4.0-10.5) K/mm3 RBC 3.34 L (4.2-5.4) M/mm3 Hgb 9.7 L (12.5-16.0) gm/dL Hct 29.8 L (37.0-47.0) % RDW 14.1 H (11.5-14.0) % Immature Gran % (Auto) 1.80 H (0.001-0.429) % Immature Gran # (Auto) 0.24 H (0.000-0.0310) K/mm3 Neutrophils # 8.8 H (1.3-6.0) K/mm3 Monocytes # 1.2 H (0.0-1.0) k/mm3 Chloride 108 H (97-106) mmol/L Est GFR (Non-Af Amer) 138 H (60-130) mL/min Total Protein 6.0 L (6.2-8.2) gm/dL Albumin 2.3 L (3.4-5.0) gm/dl TSH 7.167 H (0.358-3.74) uIU/mL Cauti Physician Documentation - Urinary Catheter Management Urethral (Taveras) Urethral Indwelling: No Date of Insertion: 12/08/18 Time of Insertion: 08:15 Date of Removal: 12/09/18 Time of Removal: 09:20 Assessment/Plan - Problems/Diagnosis (1) Severe preeclampsia Problem: Resolved Qualifiers: Trimester: third trimester Qualified Code(s): O14.13 - Severe pre- eclampsia, third trimester (2) Hypothyroid Problem: Chronic Qualifiers: Hypothyroidism type: unspecified Qualified Code(s): E03.9 - Hypothyroidism, unspecified (3) History of insulin resistance Problem: Chronic (4) Anemia Problem: Acute Qualifiers: Anemia type: iron deficiency Iron deficiency anemia type: inadequate tary iron intake Qualified Code(s): D50.8 - Other iron deficiency anemias (5) hemorrhage Problem: Acute Qualifiers: hemorrhage type: third-stage Qualified Code(s): O72.0 - Third- stage hemorrhage (6) Migraine Problem: Resolved Qualifiers: Migraine type: without aura Status migrainosus presence: with status migrainosus Intractability: intractable Qualified Code(s): G43.011 - Migraine without aura, intractable, with status migrainosus
[2018-12-10 13:54] VITALS: BP 129/68
[2018-12-12 22:02] LABS: Thyroglobulin Antibodies <1 IU/mL (< or = 1); Thyroid Peroxidase Antibodies 5 IU/mL (<9)
== END 2018-12-10 14:40 | disposition home or self-care (01) | DRG 807 ==
LOC: OB
PROVIDERS: ADMIT Obstetrics & Gynecology; ATTEND Obstetrics & Gynecology
DX: E03.9 Hypothyroidism, unspecified; E66.9 Obesity, unspecified; G43.909 Migraine, unspecified, not intractable, without status migrainosus; Z3A.37 37 weeks gestation of pregnancy; O99.810 Abnormal glucose complicating pregnancy; O72.1 Other immediate postpartum hemorrhage; D50.8 Other iron deficiency anemias; Z37.0 Single live birth; O14.14 Severe pre-eclampsia complicating childbirth; O99.284 Endocrine, nutritional and metabolic diseases complicating childbirth; E88.81 Metabolic syndrome and other insulin resistance; O99.02 Anemia complicating childbirth
CPT/HCPCS: 36415; 59025; 80053; 80307; 82570; 84155; 84156; 84439; 85025; 86376; 86800; 88307; J2405

== ENCOUNTER 2020-10-31 13:48 | Inpatient (IN) ==
[2020-10-31] MEDS ORDERED: diphenhydrAMINE HCL 50 MG/ML VIAL IV ONE (13:50)
[2020-10-31] MEDS ORDERED: ONDANSETRON HCL/PF 2 MG/ML VIAL IV PRN ×2 (13:50→20:18)
[2020-10-31] MEDS ORDERED: DEXTROSE 5%-LACTATED RINGERS 1,000 ML IV PRN (13:50)
[2020-10-31] MEDS: METOCLOPRAMIDE HCL 5 MG/ML VIAL IV PRN ×4 (14:26→15:42)
[2020-10-31 14:28] LABS: Random Urine Total Protein 57.1 mg/dL (0-12)
[2020-10-31 14:34] LABS: Hematocrit 33.3 % (37.0-47.0); Hemoglobin 10.8 gm/dL (12.5-16.0); Mean Corpuscular Hemoglobin 27.9 pg (27-31); Mean Corpuscular Hgb Conc 32.4 g/dl (32-36); Mean Platelet Volume 8.3 fl (8-12.5); Neutrophil # 7.3 K/mm3 (1.3-6.0); Neutrophil % 73.8 % (42-75.0); Platelet Count 169 K/mm3 (150-450); Red Blood Count 3.87 M/mm3 (4.2-5.4); Red Cell Distribution Width 13.3 % (11.5-14.0); White Blood Count 9.9 K/mm3 (4.0-10.5)
[2020-10-31 14:49] LABS: Albumin * 2.5 gm/dl (3.4-5.0); BUN/Creatinine Ratio 6.3 (9.0-21.6); Bilirubin, Total 0.6 mg/dL (0.0-1.1); Calcium * 8.1 mg/dL (7.9-10.9); Total Protein 6.6 gm/dL (6.2-8.2)
[2020-10-31] MEDS ORDERED: POTASSIUM CHLORIDE 20 MEQ TABLET.SA PO ONE (16:28)
[2020-10-31] MEDS ORDERED: SUMAtriptan SUCCINATE 6 MG/0.5 ML VIAL SC ONE ×2 (16:29→19:00)
[2020-10-31] MEDS: POTASSIUM CHLORIDE IV SCH ×2 (16:58→21:41)
[2020-10-31] MEDS: RINGER S LACTATED IV SCH ×2 (16:58→21:41)
[2020-10-31] MEDS ORDERED: OXYTOCIN/0.9 % SODIUM CHLORIDE 30 UNITS/500 ML BAG IV ONE ×2 (19:17→23:50)
[2020-10-31] MEDS ORDERED: RINGER'S SOLUTION,LACTATED 1,000 ML IV ONE (19:17)
[2020-10-31] MEDS ORDERED: ONDANSETRON 4 MG TAB.RAPDIS PO PRN ×2 (19:17→23:50)
[2020-10-31] MEDS ORDERED: MAGNESIUM SULFATE IN WATER 1,000 ML IV PRN ×2 (19:19→23:50)
[2020-10-31] MEDS ORDERED: MAGNESIUM SULFATE IN WATER 50 ML, MAGNESIUM SULFATE IN WATER 50 ML IV ONE ×2 (19:19)
--- NOTE | 2020-10-31 19:32 | HP ---
Chief Complaint - Chief Complaint Date of Service: 10/31/20 Time of Service: 19:22 Chief Complaint: Intractable Headache History of Present Illness: 30 yo at 36w0d presents to L&D from office for reoccuring intractable headache. Patient has been having frequent headaches during the past few weeks of this . She was treated in the [place] on Wednesday with the migraine protocol (IV Benadryl and Reglan) and received only a few hours of relief. She was then started on Zomig but did not relieve her headache. She did not notify anyone that her headache persisted until her routine scheduled office visit today. She was sent to L&D immediately for evaluation/tx of SHAY and to r/o preeclampsia. She rates her SHAY as 6/10 still with no relief despite SHAY protocol, caffeine, 2 doses of sumatriptan 6mg SC, and IV fluid bolus. Headache is inside/top of head. She denies visual changes, epigastric pain, or sinus/URI s/s. She complains of increasing frequency and intensity of contractions as well. During her period of observation over the past 3 hours her cervix has changed from 2-3/75/-2 to 5/75/-2. This complicated by hypothyroid (no meds), frequent HAs, h/o preeclampsia, obesity (BMI 38.7), and borderline GDM controlled by diet. Rh positive Rubella Nonimmune GBS pending Medical History (Last Reviewed 10/31/20 @ 19:47 by Yusuf France DO) Adult BMI 38.0-38.9 kg/sq m (Chronic) History of hemorrhage (Chronic) History of severe pre-eclampsia (Chronic) History of insulin resistance (Chronic) PCOS (polycystic ovarian syndrome) (Chronic) BMI 39.0-39.9,adult Onset Date: 01/19/17 Body piercing Dysmenorrhea Onset Date: 06/03/15 Frequent headaches History of delivery Onset Date: 12/08/18 [id number] d/t pre-eclampsia w/severe features. Insulin resistance Onset Date: 01/09/16 Irregular menses Menorrhagia with regular cycle Onset Date: 06/03/15 Oligomenorrhea Onset Date: 01/09/16 PCOS (polycystic ovarian syndrome) Onset Date: 01/09/16 hemorrhage, delivered Onset Date: 12/08/18 400mL's Pre-eclampsia affecting , antepartum Onset Date: 12/07/18 severe Tattoos Uterine atony Onset Date: 12/08/18 w/post hemorrhage Asthma exercise induced. No hospitalizations. No issues since childhood. Ankle pain, left (Resolved) Onset Date: ~07/17/18 Bacterial vaginitis (Resolved) Body mass index (BMI) 40.0-44.9, adult (Resolved) Foot pain, left (Resolved) Onset Date: ~07/17/18 Frequent headaches (Resolved) Hypothyroid (Resolved) Infertility associated with anovulation (Resolved) responded in past to clomid Injury of foot, left (Resolved) Onset Date: ~07/17/18 Ruptured ovarian cyst Onset Date: ~05/2016 Secondary oligomenorrhea (Resolved) Surgical History: Surgical History (Last Reviewed 10/31/20 @ 19:47 by Yusuf France DO) History of appendectomy Onset Date: ~1998 History of cholecystectomy Onset Date: ~2016 @ [facility] [place] teeth extracted Family History: Family History (Last Reviewed 10/31/20 @ 19:47 by Yusuf France DO) Father Alive and well Mother Alive and well Social History: (Last Reviewed 10/31/20 @ 19:47 by Yusuf France DO) Social History: adopted: No Marital status: household members: spouse number of children: 2 current occupational status: employed current occupation: Daycare Worker Highest level of school completed/degree received: high school graduate Sexually Active: Yes Service: No Tobacco: Smoking Status: Never smoker Alcohol: alcohol intake: former alcohol intake frequency: holiday/special occasion details: none since +UPT Substance Use: substance use type: does not use Dietary Habits: caffeine: Yes caffeine comment: 3-4 cans/day Type: carbonated beverages daily servings of milk/calcium: 0-1 Exercise: Physical activity type: none frequency: does not exercise Marge/Scientology: special marge needs: No Personal Safety: do you feel safe at home: Yes Review Of Systems (GEN) - Review of Systems Generalized/Overall Review: Present: No Symptoms Reported EENTM: Present: No Symptoms Reported Respiratory: Present: No Symptoms Reported Cardiac: Present: No Symptoms Reported Abdominal: Present: Abdominal Pain - contractions Genitourinary: Present: No Symptoms Reported Musculoskeletal: Present: No Symptoms Reported Neurological: Present: Headache Skin: Present: No Symptoms Reported Endocrine: Present: No Symptoms Reported Immunizations: IMMUNIZATION HX Immunizations Up to Date Yes History of Influenza Vaccine Yes Allergies/Adverse Reactions: Allergies Allergy/AdvReac Type Severity Reaction Status Date / Time Penicillins Allergy Mild Hives Verified 10/31/20 13:18 Home Medications: HOME MEDICATIONS acetaminophen 500 mg tablet 1,000 mg PO Q6H PRN tab 04/30/20 [Last Taken 10/31/20 08:00] aspirin 81 mg tablet,delayed release 81 mg PO DAILY 06/04/20 [Last Taken 10/31/20 08:00] Vits96/Iron Fum/Folic [ S] 1 tab PO DAILY 09/17/20 [Last Taken 10/31/20 08:00] magnesium 250 mg tablet 1,000 mg PO DAILY tab 09/17/20 [Last Taken 10/31/20 08:00] metoprolol tartrate 25 mg tablet 25 mg PO Q12H #60 tab 09/17/20 [Last Taken 10/31/20 08:00] ondansetron 4 mg disintegrating tablet 4 mg PO Q6H PRN #7 tab 09/19/20 [Last Taken Unknown] blood sugar diagnostic See Rx Instructions .ROUTE .MEDSUPPLY #100 ea 09/24/20 [Last Taken Unknown] blood-glucose meter See Rx Instructions .ROUTE .MEDSUPPLY #1 ea 09/24/20 [Last Taken Unknown] lancets See Rx Instructions .ROUTE .MEDSUPPLY #100 ea 09/24/20 [Last Taken Unknown] zolmitriptan 2.5 mg disintegrating tablet 2.5 mg PO Q2H PRN #4 tab 10/29/20 [Last Taken 10/30/20 22:00] Exam - Exam Vital Signs: Vital Signs - Last Taken Temp 36.6 C 10/31/20 14:21 Pulse 129 H 10/31/20 14:21 Resp 18 10/31/20 14:21 BP 127/69 10/31/20 14:21 Pulse Ox 98 10/31/20 14:21 Constitutional: Present: Alert, Oriented x3, Cooperative, Mild distress ENT Exam: Present: hearing grossly normal Neck: Present: non-tender, supple. Absent: thyromegaly Breasts: Present: Exam deferred Respiratory: Present: lungs clear, no respiratory distress Cardiovascular/Chest: Present: normal peripheral pulses, regular rate, rhythm Abdomen: Present: soft, nontender, no rebound tenderness, other - gravid /Rectal: Present: Other - Cervix - 5/75/-2 Extremity: Present: non-tender, no calf tenderness, lower extremity edema Skin Exam: Present: normal color, warm/dry, no cyanosis Lymphatic: Present: no adenopathy Neurologic: Present: alert, normal mood/affect, oriented x 3, other - DTR 3/4, no clonus Appearance: Present: appropriate appearance, appropriate insight Eye contact: Present: cooperative, good eye contact Thoughts: Present: normal thought pattern, normal mood /affect Diagnostic Studies: Abnormal Lab Results 10/31/20 10/31/20 10/31/20 Range/Units 14:00 14:29 14:29 RBC 3.87 L (4.2-5.4) M/mm3 Hgb 10.8 L (12.5-16.0) gm/dL Hct 33.3 L (37.0-47.0) % Immature Gran % (Auto) 0.70 H (0.001-0.429) % Immature Gran # (Auto) 0.07 H (0.000-0.0310) K/mm3 Lymphocytes % 16.5 L (20-51) % Neutrophils # 7.3 H (1.3-6.0) K/mm3 Potassium 3.0 L (3.4-4.6) mmol/L Est GFR (Non-Af Amer) 159 H (60-130) mL/min BUN/Creatinine Ratio 6.3 L (9.0-21.6) ALT 12 L (19-67) U/L Albumin 2.5 L (3.4-5.0) gm/dl Ur Random Creatinine 289.2 H (60-200) mg/dL U Random Total Protein 57.1 H (0-12) mg/dL 10/31/20 Range/Units 16:42 RBC (4.2-5.4) M/mm3 Hgb (12.5-16.0) gm/dL Hct (37.0-47.0) % Immature Gran % (Auto) (0.001-0.429) % Immature Gran # (Auto) (0.000-0.0310) K/mm3 Lymphocytes % (20-51) % Neutrophils # (1.3-6.0) K/mm3 Potassium 2.6 L (3.4-4.6) mmol/L Est GFR (Non-Af Amer) (60-130) mL/min BUN/Creatinine Ratio (9.0-21.6) ALT (19-67) U/L Albumin (3.4-5.0) gm/dl Ur Random Creatinine (60-200) mg/dL U Random Total Protein (0-12) mg/dL Laboratory Results WBC 9.9 K/mm3 (4.0-10.5) 10/31/20 14:29 RBC 3.87 M/mm3 (4.2-5.4) L 10/31/20 14:29 Hgb 10.8 gm/dL (12.5-16.0) L 10/31/20 14:29 Hct 33.3 % (37.0-47.0) L 10/31/20 14:29 MCV 86.0 fl (78-100) 10/31/20 14:29 MCH 27.9 pg (27-31) 10/31/20 14:29 MCHC 32.4 g/dl (32-36) 10/31/20 14:29 RDW 13.3 % (11.5-14.0) 10/31/20 14:29 Plt Count 169 K/mm3 (150-450) 10/31/20 14:29 MPV 8.3 fl (8-12.5) 10/31/20 14:29 Immature Gran % (Auto) 0.70 % (0.001-0.429) H 10/31/20 14:29 Immature Gran # (Auto) 0.07 K/mm3 (0.000-0.0310) H 10/31/20 14:29 Neutrophils % 73.8 % (42-75.0) 10/31/20 14:29 Lymphocytes % 16.5 % (20-51) L 10/31/20 14:29 Monocytes % 7.0 % (0.0-9) 10/31/20 14:29 Eosinophils % 1.8 % (0.0-3.0) 10/31/20 14:29 Basophils % 0.2 % (0.0-1.0) 10/31/20 14:29 Nucleated RBC % 0.0 k/mm3 (0-1) 10/31/20 14:29 Neutrophils # 7.3 K/mm3 (1.3-6.0) H 10/31/20 14:29 Lymphocytes # 1.63 k/mm3 (1.5-3.5) 10/31/20 14:29 Monocytes # 0.7 k/mm3 (0.0-1.0) 10/31/20 14:29 Eosinophils # 0.2 k/mm3 (0.0-0.7) 10/31/20 14:29 Absolute Basophils 0.0 k/mm3 (0.0-0.1) 10/31/20 14:29 Sodium 137 mmol/L (132-142) 10/31/20 14:29 Plasma Sodium 137 mmol/L (130-142) 10/31/20 14:29 Potassium 2.6 mmol/L (3.4-4.6) L 10/31/20 16:42 Chloride 103 mmol/L (97-106) 10/31/20 14:29 Carbon Dioxide 24.0 mmol/L (24-32.6) 10/31/20 14:29 Anion Gap 13.0 mmol/L (6.8-13.8) 10/31/20 14:29 BUN 3 mg/dL (3-23) 10/31/20 14:29 Creatinine 0.48 mg/dL (0.4-1.4) 10/31/20 14:29 Est GFR (Non-Af Amer) 159 mL/min (60-130) H 10/31/20 14:29 BUN/Creatinine Ratio 6.3 (9.0-21.6) L 10/31/20 14:29 Random Glucose 100 mg/dL (70-110) 10/31/20 14:29 Calcium 8.1 mg/dL (7.9-10.9) 10/31/20 14:29 Calcium Adj for Albumin 9.0 mg/dL (8.4-10.2) 10/31/20 14:29 Total Bilirubin 0.6 mg/dL (0.0-1.1) 10/31/20 14:29 AST 16 U/L (0-48) 10/31/20 14:29 ALT 12 U/L (19-67) L 10/31/20 14:29 Alkaline Phosphatase 154 U/L (50-170) 10/31/20 14:29 Total Protein 6.6 gm/dL (6.2-8.2) 10/31/20 14:29 Albumin 2.5 gm/dl (3.4-5.0) L 10/31/20 14:29 Ur Random Creatinine 289.2 mg/dL (60-200) H 10/31/20 14:00 U Random Total Protein 57.1 mg/dL (0-12) H 10/31/20 14:00 U Gibson Prot/Creat Ratio 197 mg/gm (0-199) 10/31/20 14:00 Assessment/Plan - Assessment/Plan (1) labor Assessment: Due to intractable headache not responding to various SHAY therapies as in past and increasing neurologic irritability, will place on seizure precautions and magnesium sulfate as a precautionary measure. Start GBS prophylaxis since and culture unavailable for 48 hours. Pitocin augmentation and Epidural PRN. Problem: Acute Qualifiers: labor trimester: third trimester labor delivery status: with delivery in third trimester Fetus number: single or unspecified fetus Qualified Code(s): O60.14X0 - labor third trimester with delivery third trimester, not applicable or unspecified (2) Headache Problem: Acute Qualifiers: Headache type: unspecified Headache chronicity pattern: acute headache Intractability: intractable Qualified Code(s): R51.9 - Headache, unspecified (3) History of hemorrhage Problem: Chronic (4) History of severe pre-eclampsia Problem: Chronic (5) Insulin resistance complicating Problem: Acute (6) Adult BMI 38.0-38.9 kg/sq m Problem: Chronic
[2020-10-31] MEDS ORDERED: BUPIVACAINE HCL/0.9 % NACL/PF 250 ML EP PRN (20:18)
[2020-10-31] MEDS ORDERED: NALOXONE HCL 1 MG/1 ML SYRG IV PRN (20:18)
[2020-10-31] MEDS ORDERED: BUPIVACAINE HCL/PF 30 ML VIAL EP SCH (20:30)
--- NOTE | 2020-10-31 20:48 | ANES ---
Anesthesia Pre Procedure Eval Vitals/Labs: Last Vital Signs Temp 36.6 C 10/31/20 14:21 Pulse 129 H 10/31/20 14:21 Resp 18 10/31/20 14:21 BP 127/69 10/31/20 14:21 Pulse Ox 98 10/31/20 14:21 HOME MEDICATIONS acetaminophen 500 mg tablet 1,000 mg PO Q6H PRN tab 04/30/20 [Last Taken 10/31/20 08:00] aspirin 81 mg tablet,delayed release 81 mg PO DAILY 06/04/20 [Last Taken 10/31/20 08:00] Vits96/Iron Fum/Folic [ S] 1 tab PO DAILY 09/17/20 [Last Taken 10/31/20 08:00] magnesium 250 mg tablet 1,000 mg PO DAILY tab 09/17/20 [Last Taken 10/31/20 08:00] metoprolol tartrate 25 mg tablet 25 mg PO Q12H #60 tab 09/17/20 [Last Taken 10/31/20 08:00] ondansetron 4 mg disintegrating tablet 4 mg PO Q6H PRN #7 tab 09/19/20 [Last Taken Unknown] blood sugar diagnostic See Rx Instructions .ROUTE .MEDSUPPLY #100 ea 09/24/20 [Last Taken Unknown] blood-glucose meter See Rx Instructions .ROUTE .MEDSUPPLY #1 ea 09/24/20 [Last Taken Unknown] lancets See Rx Instructions .ROUTE .MEDSUPPLY #100 ea 09/24/20 [Last Taken Unknown] zolmitriptan 2.5 mg disintegrating tablet 2.5 mg PO Q2H PRN #4 tab 10/29/20 [Last Taken 10/30/20 22:00] Allergies/Adverse Reactions: Allergies Allergy/AdvReac Type Severity Reaction Status Date / Time Penicillins Allergy Mild Hives Verified 10/31/20 13:18 - Planned Procedure Planned Procedure: Labor Epidural Medication List Reviewed:: Yes Allergies Verified: Yes Medical History (Last Reviewed 10/31/20 @ 19:47 by Yusuf France DO) Adult BMI 38.0-38.9 kg/sq m (Chronic) History of hemorrhage (Chronic) History of severe pre-eclampsia (Chronic) History of insulin resistance (Chronic) PCOS (polycystic ovarian syndrome) (Chronic) BMI 39.0-39.9,adult Onset Date: 01/19/17 Body piercing Dysmenorrhea Onset Date: 06/03/15 Frequent headaches History of delivery Onset Date: 12/08/18 [id number] d/t pre-eclampsia w/severe features. Insulin resistance Onset Date: 01/09/16 Irregular menses Menorrhagia with regular cycle Onset Date: 06/03/15 Oligomenorrhea Onset Date: 01/09/16 PCOS (polycystic ovarian syndrome) Onset Date: 01/09/16 hemorrhage, delivered Onset Date: 12/08/18 400mL's Pre-eclampsia affecting , antepartum Onset Date: 12/07/18 severe Tattoos Uterine atony Onset Date: 12/08/18 w/post hemorrhage Asthma exercise induced. No hospitalizations. No issues since childhood. Ankle pain, left (Resolved) Onset Date: ~07/17/18 Bacterial vaginitis (Resolved) Body mass index (BMI) 40.0-44.9, adult (Resolved) Foot pain, left (Resolved) Onset Date: ~07/17/18 Frequent headaches (Resolved) Hypothyroid (Resolved) Infertility associated with anovulation (Resolved) responded in past to clomid Injury of foot, left (Resolved) Onset Date: ~07/17/18 Ruptured ovarian cyst Onset Date: ~05/2016 Secondary oligomenorrhea (Resolved) Surgical History (Last Reviewed 10/31/20 @ 19:47 by Yusuf France DO) History of appendectomy Onset Date: ~1998 History of cholecystectomy Onset Date: ~2017 @ [facility] [place] teeth extracted Family History (Last Reviewed 10/31/20 @ 19:47 by Yusuf France DO) Father Alive and well Mother Alive and well - Cardiovascular Tolerate Activity: Good - Anesthesia Assessment and Plan ASA Class: PS, III Anesthesia Type Plan: Epidural
--- NOTE | 2020-10-31 21:09 | ANES ---
Anesthesia Procedure Note Procedure Note: ANESTHESIA PROCEDURE NOTE Date of Procedure: 10/31/2020. Time of procedure: 2049. Performed by: Ehsan Stuart CRNA Rehab Director: None. Preprocedure diagnosis: Active labor. Post procedure diagnosis: Same. Procedure: Insertion of labor epidural. Indications: The patient is a 30-year-old female in active labor requesting labor epidural for pain management. Findings: See below. Details of the procedure: The patient was placed in a sitting position. DuraPrep as well as Betadine swabs X3 was applied to the patient's back. Patient was then draped in a sterile fashion. Lidocaine 1% was infiltrated to the skin and subcutaneous tissues at the level of the L3-4 interspace. The epidural space was identified using a 18-gauge Tuohy needle with [id number] technique. Epidural catheter was inserted to a depth of 12 centimeters at skin. Negative test dose was elicited using 3 mL of 1.5% preservative-free lidocaine plus epinephrine 1 200,000. The epidural catheter was then taped and secured in place. A loading dose of 8 mL of 0.25% preservative-free bupivacaine was administered to the epidural catheter after negative aspiration for blood and CSF. EBL: Minimal. Fluids: N/A. Specimen: N/A. Post procedure condition: The patient tolerated the procedure well. No complications were noted. Thank you for this consultation. Ehsan Stuart CRNA
--- NOTE | 2020-10-31 21:09 | ANES ---
Post Anesthesia Assessment - Vital Signs Vitals: Last Vital Signs Temp 36.4 C 10/31/20 21:08 Pulse 112 H 10/31/20 21:08 Resp 16 10/31/20 21:08 BP 128/62 10/31/20 21:08 Pulse Ox 100 10/31/20 21:08 Airway Patency: Normal - Mental Status Level Of Consciousness: Awake - N/V Assessment Nausea/Vomiting Presence: None Dehydration:: No
[2020-10-31] MEDS ORDERED: BISACODYL 10 MG SUPP.RECT RC PRN (23:50)
[2020-10-31] MEDS ORDERED: SENNOSIDES 8.6 MG TABLET PO PRN (23:50)
[2020-10-31] MEDS ORDERED: GLYCERIN/WITCH HAZEL LEAF 40 APPL BOX TP PRN (23:50)
[2020-10-31] MEDS ORDERED: BENZOCAINE/MENTHOL 81 SPRAY CAN TP PRN (23:50)
[2020-10-31] MEDS ORDERED: HYDROCORTISONE 30 APPL TUBE TP PRN (23:50)
[2020-10-31] MEDS ORDERED: ACETAMINOPHEN 325 MG TABLET PO PRN (23:50)
--- NOTE | 2020-11-01 00:09 | OR ---
Operative Report - Dictated Report Narrative: Spontaneous vaginal delivery of viable male at 2317 on 10/31/2020 with Apgars 5, 7, 8, weighing 3035 g in TANISHA position. [Cord clamping delayed approximately 1 minute] Placenta delivered with trailing membranes requiring manual extraction of residual membranes. Three-vessel cord. Estimated blood loss: 150 mL Anesthesia: [epidural] Lacerations: Right periurethral abrasion - no repair needed. History for History for Definition: * The number of deliveries resulting in a live the patient experienced prior to current hospitalization * The previous delivery of live twins or any live multiple gestation is considered one live event. *If primagravida or nulliparous is documented select zero for the number of previous live births. Live Events: Live Events: 2
[2020-11-01] MEDS ORDERED: RINGER S LACTATED IV SCH (00:15)
[2020-11-01] MEDS ORDERED: POTASSIUM CHLORIDE IV SCH (00:15)
[2020-11-01] MEDS: IBUPROFEN 800 MG TABLET PO PRN ×4 (00:22→21:09)
[2020-11-01] MEDS: oxyCODONE HCL/ACETAMINOPHEN 1 TAB TABLET PO PRN ×3 (00:22→15:01)
[2020-11-01] MEDS ORDERED: CLINDAMYCIN IN 0.9 % SOD CHLOR 900 MG/50 ML BAG IV SCH (03:18)
[2020-11-01] MEDS ORDERED: ZOLMITRIPTAN 2.5 MG PO PRN (04:50)
[2020-11-01 05:17] LABS: Hematocrit 27.7 % (37.0-47.0); Mean Cell Volume 87.1 fl (78-100); Mean Corpuscular Hemoglobin 28.3 pg (27-31); Mean Corpuscular Hgb Conc 32.5 g/dl (32-36); Mean Platelet Volume 8.6 fl (8-12.5); Neutrophil # 8.1 K/mm3 (1.3-6.0); Neutrophil % 70.7 % (42-75.0); Platelet Count 154 K/mm3 (150-450); Red Blood Count 3.18 M/mm3 (4.2-5.4); Red Cell Distribution Width 13.2 % (11.5-14.0); White Blood Count 11.4 K/mm3 (4.0-10.5)
[2020-11-01 05:36] LABS: Albumin * 1.9 gm/dl (3.4-5.0); Anion Gap 10.6 mmol/L (6.8-13.8); BUN/Creatinine Ratio 4.3 (9.0-21.6); Bilirubin, Total 0.6 mg/dL (0.0-1.1); Ca. Corrected For Albumin 8.3 mg/dL (8.4-10.2); Calcium * 6.9 mg/dL (7.9-10.9); Carbon Dioxide 24.4 mmol/L (24-32.6); Total Protein 5.1 gm/dL (6.2-8.2)
[2020-11-01] MEDS: METOPROLOL TARTRATE 25 MG TABLET PO SCH ×2 (07:39→17:16)
[2020-11-01] MEDS: DOCUSATE SODIUM 100 MG CAPSULE PO SCH ×2 (08:27→23:20)
[2020-11-01] MEDS: PRENATAL VITS96/IRON FUM/FOLIC 1 TAB TABLET PO SCH (08:27)
--- NOTE | 2020-11-01 11:41 | PN ---
Subjective - Date and Time Seen Date: 11/01/20 Time: 11:37 Subjective Narrative: Patient reports her headache is now a 2. No other complaints Objective Objective Narrative: See vital signs - Review of Systems Generalized/Overall Review: Reports: No Symptoms Reported EENTM: Reports: Other - headache Respiratory: Reports: No Symptoms Reported Cardiac: Reports: No Symptoms Reported Abdominal: Reports: No Symptoms Reported Musculoskeletal Complaints: Reports: No Symptoms Reported Neurological: Reports: Headache Skin: Reports: No Symptoms Reported Endocrine: Reports: No Symptoms Reported Misc: All systems neg except as marked - Vitals Vitals: Last Vital Signs Temp 36.4 C 11/01/20 08:00 Pulse 101 H 11/01/20 09:00 Resp 20 11/01/20 09:00 BP 144/77 H 11/01/20 09:00 Pulse Ox 98 11/01/20 09:00 - Abnormal Lab Findings Abnormal Lab Findings: Abnormal Lab Results 10/31/20 10/31/20 10/31/20 Range/Units 14:00 14:29 14:29 WBC (4.0-10.5) K/mm3 RBC 3.87 L (4.2-5.4) M/mm3 Hgb 10.8 L (12.5-16.0) gm/dL Hct 33.3 L (37.0-47.0) % Immature Gran % (Auto) 0.70 H (0.001-0.429) % Immature Gran # (Auto) 0.07 H (0.000-0.0310) K/mm3 Lymphocytes % 16.5 L (20-51) % Neutrophils # 7.3 H (1.3-6.0) K/mm3 Potassium 3.0 L (3.4-4.6) mmol/L Chloride (97-106) mmol/L BUN (3-23) mg/dL Est GFR (Non-Af Amer) 159 H (60-130) mL/min BUN/Creatinine Ratio 6.3 L (9.0-21.6) Random Glucose (70-110) mg/dL Calcium (7.9-10.9) mg/dL Calcium Adj for Albumin (8.4-10.2) mg/dL ALT 12 L (19-67) U/L Total Protein (6.2-8.2) gm/dL Albumin 2.5 L (3.4-5.0) gm/dl Ur Random Creatinine 289.2 H (60-200) mg/dL U Random Total Protein 57.1 H (0-12) mg/dL 10/31/20 11/01/20 11/01/20 Range/Units 16:42 05:08 05:08 WBC 11.4 H (4.0-10.5) K/mm3 RBC 3.18 L (4.2-5.4) M/mm3 Hgb 9.0 L (12.5-16.0) gm/dL Hct 27.7 L (37.0-47.0) % Immature Gran % (Auto) (0.001-0.429) % Immature Gran # (Auto) 0.05 H (0.000-0.0310) K/mm3 Lymphocytes % 19.2 L (20-51) % Neutrophils # 8.1 H (1.3-6.0) K/mm3 Potassium 2.6 L 3.0 L (3.4-4.6) mmol/L Chloride 107 H (97-106) mmol/L BUN 2 L (3-23) mg/dL Est GFR (Non-Af Amer) 167 H (60-130) mL/min BUN/Creatinine Ratio 4.3 L (9.0-21.6) Random Glucose 118 H (70-110) mg/dL Calcium 6.9 L (7.9-10.9) mg/dL Calcium Adj for Albumin 8.3 L (8.4-10.2) mg/dL ALT 9 L (19-67) U/L Total Protein 5.1 L (6.2-8.2) gm/dL Albumin 1.9 L (3.4-5.0) gm/dl Ur Random Creatinine (60-200) mg/dL U Random Total Protein (0-12) mg/dL - Exam Constitutional: Present: Alert, Oriented x3, Cooperative, No distress ENT Exam: Present: hearing grossly normal Neck: Present: normal inspection Respiratory: Present: lungs clear, normal breath sounds Cardiovascular/Chest: Present: regular rate, rhythm Abdomen: Present: soft, nontender, nondistended Extremity: Present: non-tender, no calf tenderness Skin Exam: Present: normal color, warm/dry, no cyanosis Neurologic: Present: alert, normal mood/affect, oriented x 3 Appearance: Present: appropriate appearance, appropriate insight, neat, no memory impairment Eye contact: Present: cooperative, good eye contact, normal speech Thoughts: Present: normal thought pattern Cauti Physician Documentation - Urinary Catheter Management Urethral (Taveras) Urethral Indwelling: Yes Date of Insertion: 11/01/20 Time of Insertion: 00:30 Date of Removal: 11/01/20 Time of Removal: 23:15 Assessment/Plan Plan Narrative: 30 year old PPD 1 s/p vaginal delivery Headache since prior to delivery: CTH negative, continue magnesium until 24 hours post delivery. Recheck CBC/CMP in the morning Hypokalemia: Dr. Zamarripa consulted to manage Migraine versus headache: Dr. Zamarripa consulted to manage - Problems/Diagnosis (1) 36 weeks gestation of Problem: Acute (2) Migraine Problem: Acute (3) Headache Problem: Acute Qualifiers: Headache type: unspecified Headache chronicity pattern: acute headache Intractability: intractable Qualified Code(s): R51.9 - Headache, unspecified
[2020-11-01] MEDS ORDERED: POTASSIUM CHLORIDE 20 MEQ TABLET.SA PO ONE (11:57)
--- NOTE | 2020-11-01 12:23 | CONS ---
[facility] - General Date of Service: 11/01/20 Narrative: I was consulted to evaluate and treat a 30-year-old female in labor and delivery that complained of intractable headache that started several days before giving . The patient had been treated with multiple medications to treat her headaches but she was not getting better. She was evaluated by her CLOTH HAND on Wednesday who became concerned that the patient might be developing preeclampsia. This patient has a history of migraine headaches and preeclampsia during previous pregnancies. Therefore as a precaution the patient was admitted to labor and delivery and delivered her baby last night. Throughout the hospitalization she continued to complain of headache and labs revealed hypokalemia. The patient was administered medications to manage her headache and was administered potassium supplements. A follow-up CMP done this morning revealed improvement of her hypokalemia but potassium is still suboptimal, therefore additional potassium supplement was ordered to be taken orally and a repeat CMP was ordered for tomorrow morning. Currently she reports significant improvement in her headache and rates her pain 2 out of 10 and is resting comfortably in bed. When asked she reports history of hypertension for which she was prescribed a beta-kavya specifically metoprolol by her CLOTH HAND over a month ago. She has been tolerating the medication without any major issues and given her elevated blood pressure and mild tachycardia at the moment decision to increase the dose of the medication was made. We will reevaluate her in the morning Source: patient - History of Present Illness Timing/Duration: 1 week Severity: moderate Associated Symptoms: denies symptoms Allergies/Adverse Reactions: Allergies Penicillins Allergy (Mild, Verified 10/31/20 13:18) Hives Home Medications: Home Medications Medication Instructions Recorded Last Taken Vits96/Iron Fum/Folic 1 tab PO DAILY 09/17/20 10/31/20 08:00 [ S] magnesium 250 mg tablet 1,000 mg PO DAILY tab 09/17/20 10/31/20 08:00 metoprolol tartrate 25 mg tablet 25 mg PO Q12H #60 tab 09/17/20 10/31/20 08:00 zolmitriptan 2.5 mg disintegrating 2.5 mg PO Q2H PRN #4 tab 10/29/20 10/30/20 22:00 tablet Metoprolol Tartrate [Lopressor] 25 mg PO Q12H tab 11/01/20 Unknown Procedures Delivery of Products of Conception, External Approach (12/07/18) Drainage of Amniotic Fluid, Therapeutic from Products of Conception, Via Natural or Artificial Opening (12/07/18) Introduction of Other Hormone into Peripheral Vein, Percutaneous Approach (12/07/18) Medications - Medications Current Medications: Current Medications Docusate Sodium (Docusate Sodium 100 Mg Capsule) 100 mg PO BID [facility] Stop: 12/01/20 09:01 Last Admin: 11/01/20 08:27 Dose: 100 mg Documented by: Oxytocin/Sodium Chloride (Pitocin 30 Units/Ns 0.9% 500 Ml) 30 units in 500 mls @ 3 mls/hr IV PRN ONE; Protocol Stop: 11/07/20 17:56 Last Infusion: 11/01/20 04:00 Dose: Infused Documented by: Oxytocin/Sodium Chloride (Pitocin 30 Units/Ns 0.9% 500 Ml) 30 units in 500 mls @ 1 mls/hr IV PRN ONE Stop: 11/21/20 19:49 Last Admin: 11/01/20 07:38 Dose: Not Given Documented by: Potassium Chloride 10 meq/ (Lactated Ringer's) 1,005 mls @ 75 mls/hr IV .[id number] [facility] Stop: 12/01/20 00:16 Last Admin: 11/01/20 02:00 Dose: 75 mls/hr Documented by: Ibuprofen (Ibuprofen 800 Mg Tablet) 800 mg PO Q6H PRN PRN Reason: Moderate Pain (pain scale 4-6) Stop: 11/30/20 23:51 Last Admin: 11/01/20 08:27 Dose: 800 mg Documented by: Metoprolol Tartrate (Metoprolol Tartrate 25 Mg Tablet) 25 mg PO Q12H [facility] Stop: 12/01/20 05:01 Last Admin: 11/01/20 07:39 Dose: Not Given Documented by: Ondansetron HCl (Ondansetron 4 Mg Tab.Rapdis) 4 mg PO Q4H PRN PRN Reason: Nausea And Vomiting Stop: 11/30/20 23:51 Last Admin: 11/01/20 00:22 Dose: 4 mg Documented by: Oxycodone/Acetaminophen (Oxycodone Hcl/Acetaminophen 1 Tab Tablet) 1 tab PO Q3H PRN PRN Reason: Severe Pain (pain scale 7-10) Stop: 11/30/20 23:51 Last Admin: 11/01/20 08:27 Dose: 1 tab Documented by: Multivit/Folic Acid/Iron ( Vits96/Iron Fum/Folic 1 Tab Tablet) 1 tab PO DAILY [facility] Stop: 12/01/20 09:01 Last Admin: 11/01/20 08:27 Dose: 1 tab Documented by: Review of Systems - Review of Systems Generalized/Overall Review: Present: No Symptoms Reported EENTM: Present: No Symptoms Reported Respiratory: Present: No Symptoms Reported Cardiac: Present: No Symptoms Reported Abdominal: Present: No Symptoms Reported Genitourinary: Present: No Symptoms Reported Musculoskeletal: Present: No Symptoms Reported Neurological: Present: Headache Skin: Present: No Symptoms Reported Endocrine: Present: No Symptoms Reported Physical Examination - Exam Vital Signs: Vital Signs - Last Taken Temp 36.4 C 11/01/20 08:00 Pulse 101 H 11/01/20 09:00 Resp 20 11/01/20 09:00 BP 144/77 H 11/01/20 09:00 Pulse Ox 98 11/01/20 09:00 O2 Oxygen Delivery Method Room Air Constitutional: Present: Alert, Oriented x3, Cooperative, Well developed, Well nourished, No distress ENT Exam: Present: normal ENT inspection, hearing grossly normal Appearance: Present: appropriate appearance, appropriate insight, neat, no memory impairment Eye contact: Present: cooperative, good eye contact, normal speech Thoughts: Present: normal thought pattern, no apparent hallucination - Results and Findings: Lab/Microbiology results last 24 hrs: Abnormal/Pending Laboratory Last 24 HRS 11/01/20 11/01/20 10/31/20 05:08 05:08 16:42 WBC 11.4 H RBC 3.18 L Hgb 9.0 L Hct 27.7 L Immature Gran % (Auto) Immature Gran # (Auto) 0.05 H Lymphocytes % 19.2 L Neutrophils # 8.1 H Potassium 3.0 L 2.6 L Chloride 107 H BUN 2 L Est GFR (Non-Af Amer) 167 H BUN/Creatinine Ratio 4.3 L Random Glucose 118 H Calcium 6.9 L Calcium Adj for Albumin 8.3 L ALT 9 L Total Protein 5.1 L Albumin 1.9 L Ur Random Creatinine U Random Total Protein 10/31/20 10/31/20 10/31/20 14:29 14:29 14:00 WBC RBC 3.87 L Hgb 10.8 L Hct 33.3 L Immature Gran % (Auto) 0.70 H Immature Gran # (Auto) 0.07 H Lymphocytes % 16.5 L Neutrophils # 7.3 H Potassium 3.0 L Chloride BUN Est GFR (Non-Af Amer) 159 H BUN/Creatinine Ratio 6.3 L Random Glucose Calcium Calcium Adj for Albumin ALT 12 L Total Protein Albumin 2.5 L Ur Random Creatinine 289.2 H U Random Total Protein 57.1 H - Assessments/Findings (1) Hypokalemia Problem: Acute (2) Headache Problem: Acute Qualifiers: Headache type: unspecified Headache chronicity pattern: acute headache Intractability: intractable Qualified Code(s): R51.9 - Headache, unspecified (3) H/O: HTN (hypertension) Problem: Acute
[2020-11-01] MEDS ORDERED: METOPROLOL TARTRATE 50 MG TABLET PO SCH (21:00)
[2020-11-02] MEDS: METOPROLOL TARTRATE 25 MG TABLET PO SCH ×2 (05:08→17:08)
[2020-11-02 06:22] LABS: Hematocrit 28.3 % (37.0-47.0); Hemoglobin 9.2 gm/dL (12.5-16.0); Mean Cell Volume 88.2 fl (78-100); Mean Corpuscular Hemoglobin 28.7 pg (27-31); Mean Corpuscular Hgb Conc 32.5 g/dl (32-36); Mean Platelet Volume 8.3 fl (8-12.5); Neutrophil # 6.5 K/mm3 (1.3-6.0); Neutrophil % 68.7 % (42-75.0); Platelet Count 153 K/mm3 (150-450); Red Blood Count 3.21 M/mm3 (4.2-5.4); Red Cell Distribution Width 13.3 % (11.5-14.0); White Blood Count 9.5 K/mm3 (4.0-10.5)
[2020-11-02 06:36] LABS: Anion Gap 8.5 mmol/L (6.8-13.8); BUN/Creatinine Ratio 5.6 (9.0-21.6); Bilirubin, Total 0.4 mg/dL (0.0-1.1); Ca. Corrected For Albumin 7.9 mg/dL (8.4-10.2); Calcium * 6.6 mg/dL (7.9-10.9); Potassium 3.5 mmol/L (3.4-4.6); Total Protein 5.2 gm/dL (6.2-8.2)
[2020-11-02] MEDS: IBUPROFEN 800 MG TABLET PO PRN ×2 (07:16→17:08)
[2020-11-02] MEDS: PRENATAL VITS96/IRON FUM/FOLIC 1 TAB TABLET PO SCH (09:05)
[2020-11-02] MEDS: DOCUSATE SODIUM 100 MG CAPSULE PO SCH ×2 (09:05→22:31)
--- NOTE | 2020-11-02 11:19 | PN ---
Subjective - Date and Time Seen Date: 11/02/20 Time: 11:17 Subjective Narrative: Patient reports her headache is now a 2. No other complaints Objective Objective Narrative: See vital signs - Review of Systems Generalized/Overall Review: Reports: No Symptoms Reported Abdominal: Reports: No Symptoms Reported - Vitals Vitals: Last Vital Signs Temp 36.9 C 11/02/20 07:10 Pulse 71 11/02/20 07:10 Resp 16 11/02/20 07:10 BP 123/66 11/02/20 07:10 Pulse Ox 96 11/02/20 07:10 - Abnormal Lab Findings Abnormal Lab Findings: Abnormal Lab Results 11/02/20 11/02/20 Range/Units 06:15 06:15 RBC 3.21 L (4.2-5.4) M/mm3 Hgb 9.2 L (12.5-16.0) gm/dL Hct 28.3 L (37.0-47.0) % Immature Gran % (Auto) 1.00 H (0.001-0.429) % Immature Gran # (Auto) 0.09 H (0.000-0.0310) K/mm3 Lymphocytes % 19.8 L (20-51) % Neutrophils # 6.5 H (1.3-6.0) K/mm3 Chloride 107 H (97-106) mmol/L Est GFR (Non-Af Amer) 139 H (60-130) mL/min BUN/Creatinine Ratio 5.6 L (9.0-21.6) Calcium 6.6 L (7.9-10.9) mg/dL Calcium Adj for Albumin 7.9 L (8.4-10.2) mg/dL ALT 10 L (19-67) U/L Total Protein 5.2 L (6.2-8.2) gm/dL Albumin 2.0 L (3.4-5.0) gm/dl - Exam Constitutional: Present: Alert, Oriented x3, Cooperative, No distress ENT Exam: Present: hearing grossly normal Neck: Present: normal inspection Abdomen: Present: soft - fundus is firm, nontender, nondistended Extremity: Present: non-tender, no calf tenderness Skin Exam: Present: normal color, warm/dry, no cyanosis Neurologic: Present: alert, normal mood/affect, oriented x 3 Appearance: Present: appropriate appearance, appropriate insight, neat, no memory impairment Eye contact: Present: cooperative, good eye contact, normal speech Thoughts: Present: normal thought pattern Cauti Physician Documentation - Urinary Catheter Management Urethral (Taveras) Urethral Indwelling: No Date of Insertion: 11/01/20 Time of Insertion: 00:30 Date of Removal: 11/02/20 Time of Removal: 03:20 Assessment/Plan Plan Narrative: PPD 2 s/p Doing well Discharge home Appreciate Dr. Zamarripa managing hypokalemia - Problems/Diagnosis (1) 36 weeks gestation of Problem: Acute (2) Migraine Problem: Resolved Qualifiers: Migraine type: other Status migrainosus presence: without status migrainosus Intractability: not intractable Qualified Code(s): G43.809 - Other migraine, not intractable, without status migrainosus (3) Headache Problem: Resolved Qualifiers: Headache type: unspecified Headache chronicity pattern: acute headache Intractability: intractable Qualified Code(s): R51.9 - Headache, unspecified
--- NOTE | 2020-11-02 11:27 | DS ---
OB Discharge Summary (1) 36 weeks gestation of Status: Acute (2) Migraine Status: Resolved Qualifiers: Migraine type: other Status migrainosus presence: without status migrainosus Intractability: not intractable Qualified Code(s): G43.809 - Other migraine, not intractable, without status migrainosus (3) Headache Status: Resolved Qualifiers: Headache type: unspecified Headache chronicity pattern: acute headache Intractability: intractable Qualified Code(s): R51.9 - Headache, unspecified Delivery Date: 10/31/20 Delivery Time: 23:17 :: 3 Para:: 3 Gestational weeks:: 36 Gestational days:: 0 Intrapartum Procedures: Spontaneous Vaginal Delivery, Anesthesia - Epidural Procedures: None /OP Complications: Preeclampsia/GHTN, Other - headache Discharge Diagnosis: GDM - Diet Dependent, Gestational Hypertension, Preeclampsia mild/severe, Other - headache - Discharge Information Date of Discharge: 11/02/20 Hospital Course: The patient is a 30 year old who presented to labor and delivery at 36 weeks for treatment of headache protocol. She received several interventions for her headache but none of the interventions relieved her headache. In the meantime, she also went into labor on her own. She had an uncomplicated vaginal delivery. course was complicated by a severe headache that did not resolve immediately . For that reason a CTH was obtained to rule out an intracranial process. She was also started on magnesium for seizure prophylaxis and the magnesium was continued for 24 hours after delivery. During her stay she did have a single elevated BP in the mild range but recheck of this blood pressure was normal. Based on the findings and symptoms I believe this patient either had gestational hypertension versus atypical pre-eclampsia not accompanied by proteinuria. I believe that hypertension was not seen due to the patient being on lopressor for her migraines and thus either of the two diagnoses above were present. Dr. Zamarripa was consulted to manage her hypokalemia and to provide insight into her headache since at first I did not think there was an obstetrical cause for her headache. Appreciate Dr. Zamarripa consulting on the patient. The patient's headache has resolved and she should follow-up in 1 week for a BP check with Dr. France. Discharge Location: Home Disposition: Home self-care Referrals: Yusuf France DO [Primary Care Provider] - Activity on Discharge:: Activity as tolerated, Pelvic Rest Discharge Diet: General/regular food Additional Patient Instructions (free text): Anna servin six week post check up is on 12/10/20 at 9:15 AM with . Andres's follow up appointment is on 11/04/20 at 1:30 PM with . Complete Home Medications List: Complete Home Medication List: Vits96/Iron Fum/Folic [ S] 1 tab PO DAILY 09/17/20 magnesium 250 mg tablet 1,000 mg PO DAILY tab 09/17/20 metoprolol tartrate 25 mg tablet 25 mg PO Q12H #60 tab 09/17/20 zolmitriptan 2.5 mg disintegrating tablet 2.5 mg PO Q2H PRN #4 tab 10/29/20 Metoprolol Tartrate [Lopressor] 25 mg PO Q12H tab 11/01/20 - Plan Discharge to:: Home Comment:: Routine Discharge Instructions Follow up in office in:: 1 week - BP check with Dr. [place] - [place] Information Weight (Grams): 3,035 Infant Sex: Male Score 1 min: 5 Score 5 min: 7 Infant Complications: None Other Complications: Baby with respiratory distress initially, has transitioned
--- NOTE | 2020-11-02 11:31 | PN ---
[facility] Note - Interim Date: 11/02/20 Time: 11:29 Narrative: 11/02/20 11:30 Patient has responded favorably to her intrahospital care. Her headache has resolved and her hypokalemia has also resolved. She reports feeling well and is now with her baby. OB is planning on discharging her possibly later on this evening and I am in total agreement. No additional treatments are recommended on my part. It was a pleasure caring for her. 11/02/20 11:30
[2020-11-03 01:12] VITALS: BP 121/67
== END 2020-11-02 23:59 | disposition home or self-care (01) | DRG 807 ==
LOC: OBCLINIC 13:48 → OB 19:39
PROVIDERS: ADMIT Obstetrics & Gynecology; ATTEND Obstetrics & Gynecology
DX: O60.14X0 Preterm labor third trimester with preterm delivery third trimester, not applicable or unspecified; R51.9 Headache, unspecified; E87.6 Hypokalemia; Z37.0 Single live birth; Z3A.36 36 weeks gestation of pregnancy